=== PATIENT | male | born 1970 | race African-American/Black ===

== ENCOUNTER 2017-04-29 22:30 | Emergency (ER) | payer SELFPAY ==
[2017-04-29 22:45] VITALS: BP 159/106; PULSE 96; TEMP 97; BMI 33.2
--- NOTE | 2017-04-30 00:43 | PDOC ---
History of Present Illness - General Chief Complaint: Laceration Stated Complaint: LACERATION Time Seen by Provider: 04/30/17 00:12 - History of Present Illness Initial Comments: 04/30/17 00:39 47 year old male with laceration while cutting an avocado to proximal end of left third phalanges. + sensation, + rom. last tetanus unknown pmhx: hypertension Past History - Past Medical History Allergies/Adverse Reactions: Allergies Allergy/AdvReac Type Severity Reaction Status Date / Time No Known Allergies Allergy Verified 04/29/17 22:45 Home Medications: Ambulatory Orders Cephalexin [Keflex] 500 mg PO TID #30 capsule 04/30/17 HTN: Yes - Psycho/Social/Smoking Cessation Hx Suicidal Ideation: No Smoking History: Current some day smoker Number of Cigarettes Smoked Daily: 1 Information on smoking cessation initiated: No *Physical Exam - Vital Signs Last Vital Signs Temp Pulse Resp BP Pulse Ox 97 F L 96 H 18 159/106 97 04/29/17 22:37 04/29/17 22:37 04/29/17 22:37 04/29/17 22:37 04/29/17 22:37 - Physical Exam General Appearance: Yes: Appropriately Dressed Extremity: positive: Normal Capillary Refill, Normal Inspection Integumentary: positive: Normal Color, Dry, Warm, Other (left 3rd digit clean 2 cm laceration) Neurologic: positive: Fully Oriented, Alert, Normal Mood/Affect, Normal Response , Motor Strength 5/5 Procedures - Laceration/Wound Repair Left Hand Wound Length: to 2.5 cm (2.5) Wound Explored: clean Wound's Depth, Shape: linear Irrigated w/ Saline: Yes Betadine Prep: Yes Anesthesia: 1% Lidocaine Amount of Anesthetic (ccs): 3 Wound Debrided: minimal Suture Size/Type: 4:0 Number of Sutures: 4 Layer Closure: No Sterile Dressing Applied: Yes Splint Applied: Yes Progress: 04/30/17 01:34 bacitracin applied. clean dressing applied. Progress Note - Progress Note Progress Note: A: finger laceration P: see procedure note. tetanus updated cephalexin *DC/Admit/Observation/Transfer Diagnosis at time of Disposition: Finger laceration Qualifiers: Encounter type: initial encounter Finger: middle finger Damage to nail status: without damage Foreign body presence: without foreign body Laterality: left Qualified Code(s): S61.213A - Laceration without foreign body of left middle finger without damage to nail, initial encounter - Discharge Dispostion Disposition: HOME - Prescriptions Prescriptions: Cephalexin [Keflex] 500 mg PO TID #30 capsule - Referrals Referrals: STAFF,NOT ON [Primary Care Provider] - - Patient Instructions Printed Discharge Instructions: DI for Laceration Repair Additional Instructions: keep wound clean and dry. take cephalexin as ordered. monitor for signs of infection redness, pain, pus drainage, red streaking. return to the ER or follow up with your doctor for a wound check. return to the ER/ pmd for suture removal in 10 days for suture removal.
[2017-04-30] MEDS ORDERED: IBUPROFEN 600 MG TABLET (FP) PO ONE ×2 (01:32→01:36)
[2017-04-30] MEDS ORDERED: CEPHALEXIN 250 MG/5 ML ORAL SUSPENSION PO ONE (01:48)
[2017-04-30] MEDS ORDERED: TETANUS AND DIPHTHERIA TOXOID 0.5 ML DISP.SYRIN IM ONE (01:48)
[2017-04-30] MEDS ORDERED: CEPHALEXIN MONOHYDRATE 250 MG CAPSULE (FP) ONE (01:58)
== END 2017-04-30 02:09 | disposition home or self-care (01) ==
LOC: JER 22:30
PROC: 0HQGXZZ Repair Left Hand Skin, External Approach (ICD-10-PCS; principal; 2017-04-29)
PROC: 3E0234Z Introduction of Serum, Toxoid and Vaccine into Muscle, Percutaneous Approach (ICD-10-PCS; 2017-04-29)
PROC: 2W3KX1Z Immobilization of Left Finger using Splint (ICD-10-PCS; 2017-04-29)
DX: S61.213A Laceration without foreign body of left middle finger without damage to nail, initial encounter (principal); W26.0XXA Contact with knife, initial encounter; Y93.G1 Activity, food preparation and clean up; Y92.038 Other place in apartment as the place of occurrence of the external cause
CPT/HCPCS: 99281-25

== ENCOUNTER 2023-04-22 03:29 | Observation (INO) | payer OTHER ==
[2023-04-22 03:43] VITALS: BMI 37.9
[2023-04-22 04:37] LABS: BASO % 0.8 % (0-2.0); EOS % 3.3 % (0-4.5); HEMATOCRIT 42.4 % (35.4-49); HEMOGLOBIN 14.4 GM/dL (11.7-16.9); LYMPH % 23.1 % (8-40); MCH 27.8 pg (25.7-33.7); MEAN CELL VOLUME 81.8 fl (80-96); MEAN PLT VOLUME 8.7 fl (7.5-11.1); MONO % 5.1 % (3.8-10.2); NEUT % 67.7 % (42.8-82.8); PLATELET COUNT 182 10^3/uL (134-434); RBC 5.19 M/mm3 (4.00-5.60); RDW 13.5 % (11.9-15.9)
[2023-04-22 04:39] LABS: INR 1.19 (0.83-1.09); PROTHROMBIN TIME (PATIENT) 13.8 SEC (9.7-13.0)
[2023-04-22 04:42] LABS: ACTIVATED PTT 30.9 SECONDS (25.2-36.5)
[2023-04-22 04:44] LABS: ALBUMIN 3.6 g/dl (3.4-5.0); BLOOD UREA NITROGEN 10.9 mg/dL (7-18); CALCIUM 8.6 mg/dL (8.5-10.1)
[2023-04-22 04:47] LABS: CREATININE 1.4 mg/dL (0.55-1.3)
[2023-04-22 04:49] LABS: BILIRUBIN,TOTAL 0.3 mg/dL (0.2-1); TOT PROT 6.7 g/dl (6.4-8.2)
[2023-04-22] MEDS ORDERED: POTASSIUM CHLORIDE ORAL LIQUID 20 MEQ/15 ML PO ONE (04:56)
[2023-04-22] MEDS ORDERED: SODIUM CHLORIDE 0.9% 500 ML INFUS.BAG IV ONE (04:56)
[2023-04-22] MEDS ORDERED: POTASSIUM CHLORIDE ORAL LIQUID 20 MEQ/15 ML ONE (05:29)
[2023-04-22] MEDS ORDERED: ACETAMINOPHEN 325 MG TABLET (FP) PO PRN (05:45)
[2023-04-22] MEDS ORDERED: DOCUSATE SODIUM 100 MG CAPSULE (FP) PO PRN (05:45)
[2023-04-22] MEDS ORDERED: SODIUM CHLORIDE 1,000 ML IV SCH (05:45)
[2023-04-22] MEDS ORDERED: amLODIPine BESYLATE 10 MG TABLET (FP) PO SCH (10:00)
[2023-04-22 11:48] LABS: POTASSIUM 3.4 mmol/L (3.5-5.1)
[2023-04-22 11:50] LABS: BLOOD UREA NITROGEN 10.2 mg/dL (7-18); CALCIUM 8.5 mg/dL (8.5-10.1)
[2023-04-22 11:53] LABS: CREATININE 1.3 mg/dL (0.55-1.3)
[2023-04-22] MEDS ORDERED: POTASSIUM CHLORIDE TABS 20 MEQ TABLET.ER (FP) PO ONE ×2 (15:31→16:04)
[2023-04-22 16:41] VITALS: BP 151/86; PULSE 64; RESP 17; TEMP 97.7
== END 2023-04-22 22:35 | disposition left against medical advice (07) ==
LOC: JER 03:29 → JERBED 05:48
PROVIDERS: ADMIT Internal Medicine; ATTEND Family Medicine
PROC: 3E0337Z Introduction of Electrolytic and Water Balance Substance into Peripheral Vein, Percutaneous Approach (ICD-10-PCS; principal; 2023-04-22)
DX: R07.9 Chest pain, unspecified (principal); I10 Essential (primary) hypertension; E87.6 Hypokalemia; Z72.0 Tobacco use
CPT/HCPCS: 36415; 71045-TC-FY; 80048; 80053; 83735; 84100; 84484; 85025; 85610; 85730; 93005; 93010; 93306-TC; 99285-25; G0378